=== PATIENT | male | born 1995 | race Two or more races ===

== ENCOUNTER 2023-05-09 12:20 | Inpatient (IN) | payer MEDICAID ==
[~2023-05-09] VITALS: Ht 162.6 cm; Wt 73.5 kg
[2023-05-09] VITALS (7 sets, daily range): BP systolic 120–146; BP diastolic 67–89; TEMP 98.7–99.3; O2SAT 98–100
--- NOTE | 2023-05-09 12:27 | NUR ---
BIBRA 60 FR HIS APT UNIT ALTERED, MAKING NOISES AND NOT COMMUNICATING WITH EMS AND OTHER MEDICAL STAFF. TACHYCARDIA NOTED AT 150 . MD NOTIFIED AND PUT ORDERS.
--- NOTE | 2023-05-09 12:35 | NUR ---
ESTABLISHED IV LINE LEFT FOREARM 18 G .
--- NOTE | 2023-05-09 12:40 | NUR ---
BLOOD SAMPLE OBTAINED SENT TO LAB .
[2023-05-09] MEDS ORDERED: IV NS 0.9% 1,000 ML BAG IV ONE ×2 (13:00→14:00)
--- NOTE | 2023-05-09 13:05 | NUR ---
ACCUCHECK 162
[2023-05-09] MEDS ORDERED: LORAZEPAM INJ 2 MG/ML VIAL ONE (13:08)
[2023-05-09 13:17] LABS: BASOPHILS % (AUTO) 0.3 % (0.0-2.0); HEMATOCRIT 47 % (39-51); HEMOGLOBIN 16.2 g/dL (13.5-17.5); LYMPHOCYTES # (AUTO) 3.7 K/uL (0.8-4.8); LYMPHOCYTES % (AUTO) 25.3 % (20.0-44.0); MEAN CORPUSCULAR HGB CONC 34 g/dl (31.0-36.0); MEAN CORPUSCULAR VOLUME 85 fL (80-96); MONOCYTES # (AUTO) 0.9 K/uL (0.1-1.30); NEUTROPHILS % (AUTO) 68.4 % (43.0-81.0); PLATELET COUNT (AUTO) 311 K/uL (150-450); RED BLOOD CELL COUNT(AUTO) 5.54 MIL/uL (4.5-6.0); WHITE BLOOD COUNT (AUTO) 14.6 K/uL (4.3-11.0)
[2023-05-09 13:29] LABS: CALCIUM, SERUM 8.8 mg/dL (8.5-10.1); CARBON DIOXIDE 20 mmol/L (21-32); CHLORIDE 103 mmol/L (98-107); CREATININE 2.7 mg/dL (0.6-1.3); GLUCOSE 177 mg/dL (74-106); SODIUM SERUM 140 mmol/L (136-145); UREA NITROGEN, BLOOD 14 mg/dL (7-18)
[2023-05-09] MEDS ORDERED: LORAZEPAM INJ 2 MG/ML VIAL IV ONE (13:30)
[2023-05-09 13:36] LABS: ALANINE AMINOTRANSFERASE 29 U/L (12-78); ALBUMIN 4.3 g/dL (3.4-5.0); ALCOHOL, BLOOD < 3 mg/dL (0-10); ALKALINE PHOSPHATASE 72 U/L (46-116); ASPARTATE AMINOTRANSFERASE 29 U/L (15-37); BILIRUBIN,DIRECT 0.3 mg/dL (0.0-0.2); BILIRUBIN,TOTAL 1.1 mg/dL (0.2-1.0); TOTAL PROTEIN, SERUM 7.8 g/dL (6.4-8.2)
[2023-05-09 13:40] LABS: THYROID STIMULATING HORMONE 0.456 uIU/mL (0.358-3.74)
--- NOTE | 2023-05-09 15:15 | NUR ---
114-1 Addendum: 05/09/23 at 1516 by ARLEY ADMITTING AWARE
--- NOTE | 2023-05-09 15:23 | NUR ---
REPORT GIVEN TO NURSE HANNA FOR JOSEMANUEL
--- NOTE | 2023-05-09 15:48 | NUR ---
DR CLAROS AT BED SIDE FOR EVAL THEN GIVE VERBAL ORDER FOR UA AND UDS.
--- NOTE | 2023-05-09 15:50 | NUR ---
PATIENT CANNOT PROVIDE URINE SAMPLE OF THIS MOMENT
--- NOTE | 2023-05-09 16:00 | NUR ---
RN OPENING NOTE RECEIVED PATIENT FROM ER VIA GURNEY. PATIENT ALERT AND ORIENTED X1-2, WITH HEART RATE AT 140, DOCTOR HYACINTH AT BEDSIDE AND AWARE OF HR. PER DOCTOR, PATIENT NEEDS IMMEDIATE TRANSFER TO ICU. PATIENT WAS ASSESSED AND SKIN NOTED INTACT, PATIENT AMBULATORY WITH ASSIST. IV ACCESS ON LFA PATENT AND FLUSHING WELL. ICU WAS CALLED TO HAVE PATIENT ADMITTED.
--- NOTE | 2023-05-09 16:06 | NUR ---
PATIENT ADMITTED TO [facility], STABLE AT TIME OF TRANSFER, ALL CARE ENDORSED TO LYUDMILA DAVIS
[2023-05-09] MEDS ORDERED: Z GUARD REMEDY 4 OZ OINT TP PRN (16:30)
[2023-05-09] MEDS ORDERED: ACETAMINOPHEN 325 MG TABLET PO PRN (16:30)
[2023-05-09] MEDS ORDERED: MAGNESIUM HYDROXIDE 30 ML UDC PO PRN (16:30)
[2023-05-09] MEDS ORDERED: MAG HYDROX/AL HYDROX/SIMETH 30 ML UDC PO PRN (16:30)
[2023-05-09] MEDS ORDERED: ZOLPIDEM TARTRATE 5 MG TABLET PO PRN (16:30)
[2023-05-09] MEDS ORDERED: ONDANSETRON HCL/PF 4 MG/2 ML VIAL IVP PRN (16:30)
--- NOTE | 2023-05-09 16:57 | NUR ---
JAZMYN HICKS GOT A CALL FROM [facility] STATING THAT THE PATIENT`S CT WILL NOT BE READ DUE TO CHANGE IN PATIENT`S NAME IN THE SYSTEM AND THAT A NEW ORDER OF CT NEEDS TO BE PLACED BY DR CLAROS. UNIT CHARGE NURSE SOON MADE AWARE AND CHARGE NURSE SOON VERBALIZED THAT SHE WILL FOLLOW UP WITH DR CLAROS AND ENTER THE ORDER.
[2023-05-09] MEDS ORDERED: VANCOMYCIN 1.5 GM in IV D5W 500ml IV ONE (17:00)
--- NOTE | 2023-05-09 17:30 | NUR ---
RECEIVED REPORT FROM [facility] NURSE. IV STARTED ON RIGHT FOREARM 20 GAUGE. PLACED ON BEDSIDE MONITOR, WILL CONTINUE TO MONITOR
[2023-05-09] MEDS: IV D5/0.45 NACL 1,000 ML IV PRN (17:53)
[2023-05-09] MEDS ORDERED: KETAMINE HCL IN 0.9 % NACL 50 MG/5 ML SYRINGE IV ONE (18:00)
[2023-05-09] MEDS ORDERED: POTASSIUM CHLORIDE 20 MEQ TAB.PRT.SR PO SCH ×3 (18:00→22:00)
[2023-05-09] MEDS: CEFTRIAXONE 2 G in IV D5W 100 ML IV SCH (18:10)
--- NOTE | 2023-05-09 19:00 | NUR ---
RN NOTE PATIENT TRANSFERRED TO ICU, ALERT, ORIENTED X2. ABLE TO COMMUNICATE NEEDS. REPORT GIVEN TO MANJULA FOR JOSEMANUEL.
--- NOTE | 2023-05-09 19:00 | NUR ---
CARE ENDORSED TO NIGHTSHIFT LYUDMILA ESCOBEDO FOR CONTINUATION OF CARE.
--- NOTE | 2023-05-09 19:15 | NUR ---
RN OPENING NOTES RECEIVED PATIENT ON BED, AWAKE A/O X 2-3, ON NASAL CANULA @ 5 LPM, SATING AT 98%. RESPIRATORY EVEN AND UNLABORED, NO SOB NOTED. AFEBRILE. NO S/S OF DISTRESS NOTED. NOTED WITH RFA # 20 AND LFA #18 PERIPHERAL LINE, PATENT INTACT, FLUSHED WITH NS, NO S/S OF INFILTRATION NOTED. RUNNING WITH D5 1/2 NS @ 125ML/HR. S/P LUMBAR PUNCTURE, NO BLEEDING AT SITE NOTED, PATIENT PLACED FLAT ON BED, ENCOURAGE TO INCREASED FLUID INTAKE. ALL SAFETY PRECAUTION PROVIDED. BED IN LOWEST POSITION LOCKED. CALL LIGHT WITH IN REACH.
--- NOTE | 2023-05-09 19:15 | NUR ---
VANCOMYCIN NOT ADMINISTERED. MED NOT FOUND IN [facility], WHERE PATIENT WAS ORIGINALLY ADMITTED. FOLLOWED UP WITH ER TO SEE IF MED WENT TO ER FIRST. MED NOT FOUND IN ER. UNABLE TO GET A HOLD OF PHARMACY.
--- NOTE | 2023-05-09 20:00 | NUR ---
RN NOTES URINE COLLECTED AND SENT TO LAB.
[2023-05-09 20:12] LABS: CSF GLUCOSE 102 mg/dL (40-70); CSF PROTEIN 37.15 mg/dL (15-45)
[2023-05-09] MEDS: ACYCLOVIR IV 1 GM in IV D5W 250 ML IV SCH (21:02)
[2023-05-09 21:30] LABS: BILIRUBIN,URINE NEGATIVE (NEGATIVE); COLOR,URINE YELLOW (YELLOW); LEUKOCYTE ESTERASE ,URINE NEGATIVE (NEGATIVE); NITRITE, URINE NEGATIVE (NEGATIVE); PH,URINE 6.5 (5.0-8.0); PROTEIN,URINE 2+ mg/dl (NEGATIVE); UGLUCOSE TRACE mg/dL (NEGATIVE)
[2023-05-09 21:33] LABS: BACTERIA,URINE None seen /HPF (None Seen); RBC,URINE 21-50 /HPF (0-2); WBC,URINE 0-2 /HPF (0-3)
[2023-05-09 21:34] LABS: MUCUS,URINE Few /LPF (None Seen); URINE AMORPHOUS URATE Moderate /HPF (None Seen)
[2023-05-09] MEDS: POTASSIUM CHLORIDE 20 MEQ TAB.PRT.SR PO SCH (21:54)
[2023-05-10] VITALS (17 sets, daily range): BP systolic 117–140; BP diastolic 58–107; TEMP 97.5–99.2; O2SAT 94–99
[2023-05-10] MEDS: IV D5/0.45 NACL 1,000 ML IV PRN ×2 (03:21→10:36)
[2023-05-10 04:43] LABS: BASOPHILS % (AUTO) 0.5 % (0.0-2.0); EOSINOPHILS % (AUTO) 0.1 % (0.0-6.0); HEMATOCRIT 41 % (39-51); LYMPHOCYTES # (AUTO) 3.2 K/uL (0.8-4.8); LYMPHOCYTES % (AUTO) 36.3 % (20.0-44.0); MEAN CORPUSCULAR HGB CONC 34 g/dl (31.0-36.0); MEAN CORPUSCULAR VOLUME 86 fL (80-96); MONOCYTES # (AUTO) 0.5 K/uL (0.1-1.30); MONOCYTES % (AUTO) 6.1 % (2.0-12.0); PLATELET COUNT (AUTO) 212 K/uL (150-450); RED BLOOD CELL COUNT(AUTO) 4.81 MIL/uL (4.5-6.0); WHITE BLOOD COUNT (AUTO) 8.8 K/uL (4.3-11.0)
[2023-05-10] MEDS: ACYCLOVIR IV 1 GM in IV D5W 250 ML IV SCH ×3 (04:44→21:03)
[2023-05-10 05:12] LABS: CALCIUM, SERUM 8.1 mg/dL (8.5-10.1); CREATININE 1.9 mg/dL (0.6-1.3); MAGNESIUM 2.5 mg/dL (1.8-2.4); PHOSPHORUS 2.2 mg/dL (2.5-4.9); POTASSIUM 3.8 mmol/L (3.5-5.1)
[2023-05-10 05:14] LABS: THYROID STIMULATING HORMONE 1.074 uIU/mL (0.358-3.74)
--- NOTE | 2023-05-10 07:00 | NUR ---
RECIEVED PATIENT REPORT FROM NIGHTSIDFT LYUDMILA ESCOBEDO. PATIENT ON ROOM AIR, OXYGEN SATURATION AT 97%. SINUS TACHYCARDIA ON BEDSIDE MONITOR AT THIS TIME. ALERT AND ORIENTED TIMES 2-3. SKIN INTACT. PATIENT USES URINAL. ON LIQUID DIET. IV ACCESS' MAINTAINED ON RIGHT AND LEFT FOREARMS, 20 AND 18 GAUGE, RESPECTIVELY. SAFETY MEASURES IMPLEMENTED WILL CONTINUE PLAN OF CARE AND ANTICIPATE NEEDS.
--- NOTE | 2023-05-10 08:00 | NUR ---
ASKED PATIENT IF HE TAKES ANY MEDICATION AT HOME, GIVEN HIS PSYCHIATRIC HISTORY. PER PATIENT HE DOES NOT TAKE ANY HOME MEDICATIONS.
[2023-05-10] MEDS: POTASSIUM CHLORIDE 20 MEQ TAB.PRT.SR PO SCH (08:01)
--- NOTE | 2023-05-10 09:53 | NUR ---
consult: Patient is a 28 year old male that was brought brought to [facility] ER due to ETOH abuse. Patient appeared to be alert and oriented X4 (self, place, time, situation). Patient was cooperative with the repairer typewriter while conducting the assessment. He said he was brought to the hospital due to drinking heavily. He consumed two bottles of tequila. He resides [address] [place] [address]. Patient stated that he does not have any support at this time. DC Plan: Pt cortez want to return back home to [address] [place] [address] Substance Abuse resources: Substance Abuse resources provided included: [facility] Substance Abuse Self-Helpline ([facility]) ; [facility] [address] [facility] [place] [place] [id number] ; [facility] [address] [facility] [address] ; [facility] [address] [facility] [phone] ; [facility] [address] [facility] [address] ; [facility] [address] [address] [facility] [address] ; [facility] [address] [facility] [phone] ; [facility] Substance Abuse Helpline([facility] ; [facility] ; [facility]; [facility] [place]; [facility] [place]; [facility] [place]; [place] [facility] [place]; [facility], [facility]. [place]; Alcoholics Anonymous [facility]; Rachel ; Marijuana Anonymous [facility]; Narcotics Anonymous [email or web address].na.org;
[2023-05-10] MEDS: CHLORDIAZEPOXIDE HCL 25 MG CAPSULE PO SCH ×2 (11:37→17:11)
[2023-05-10] MEDS ORDERED: Folic acid 1 MG in IV D5W 50 ML IV SCH (12:00)
[2023-05-10] MEDS ORDERED: Thiamine 100 MG in IV D5W 50 ML IV SCH (12:30)
[2023-05-10] MEDS ORDERED: K PHOS NEUTRAL 250 MG TABLET PO ONE (13:30)
--- NOTE | 2023-05-10 14:00 | NUR ---
HAND OFF REPORT GIVEN TO RAHUL COREAS FOR CONTINUATION OF CARE. PATIENT TO BE TRANSFERRED TO [facility].
[2023-05-10] MEDS: VANCOMYCIN 0.75 GM in IV D5W 250 ML IV SCH (15:59)
[2023-05-10] MEDS: CEFTRIAXONE 2 G in IV D5W 100 ML IV SCH (16:35)
[2023-05-10] MEDS ORDERED: VANCOMYCIN 1 GM in IV D5W 250ml IV SCH (17:00)
--- NOTE | 2023-05-10 19:00 | NUR ---
PATIENT REMAINED STABLE, CALM AND COOPERATIVE. AL DUE MEDS GIVEN, ALL SAFETY PRECAUTIONS IMPLEMENTED. ALREADY ENDORSED HE PATIENT TO THE PM NURSE FOR JOSEMANUEL.
--- NOTE | 2023-05-10 19:59 | NUR ---
MOBILITY ARCHITECT MANAGER OPENING NOTES RECEIVED PATIENT IN BED, AWAKE WATCHING TV A/O X 4, ON ROOM AIR. RESPIRATORY EVEN AND UNLABORED, NO SOB NOTED. AFEBRILE. NO S/S OF DISTRESS NOTED. NOTED WITH RFA # 20 AND LFA #18 PERIPHERAL LINE, PATENT INTACT, FLUSHED WITH NS, NO S/S OF INFILTRATION NOTED. RUNNING WITH D5 1/2 NS @ 125ML/HR. ALL SAFETY PRECAUTION PROVIDED. BED IN LOWEST POSITION LOCKED. CALL LIGHT WITH IN REACH.
[2023-05-11] VITALS: BP 136/74; TEMP 98.7; O2SAT 98
[2023-05-11] MEDS: VANCOMYCIN 0.75 GM in IV D5W 250 ML IV SCH (02:01)
[2023-05-11] MEDS: IV D5/0.45 NACL 1,000 ML IV PRN (02:07)
[2023-05-11 04:00] VITALS: BP 143/94; TEMP 98.3; O2SAT 100
[2023-05-11] MEDS: ACYCLOVIR IV 1 GM in IV D5W 250 ML IV SCH (04:40)
[2023-05-11 06:35] LABS: BASOPHILS # (AUTO) 0.1 K/uL (0.0-0.2); EOSINOPHILS % (AUTO) 0.4 % (0.0-6.0); HEMATOCRIT 43 % (39-51); HEMOGLOBIN 14.4 g/dL (13.5-17.5); LYMPHOCYTES % (AUTO) 44.3 % (20.0-44.0); MEAN CORPUSCULAR HGB CONC 33 g/dl (31.0-36.0); MEAN CORPUSCULAR VOLUME 87 fL (80-96); MONOCYTES # (AUTO) 0.4 K/uL (0.1-1.30); MONOCYTES % (AUTO) 5.4 % (2.0-12.0); NEUTROPHILS # (AUTO) 3.3 K/uL (1.8-8.9); NEUTROPHILS % (AUTO) 48.9 % (43.0-81.0); PLATELET COUNT (AUTO) 191 K/uL (150-450); RED BLOOD CELL COUNT(AUTO) 4.99 MIL/uL (4.5-6.0); WHITE BLOOD COUNT (AUTO) 6.7 K/uL (4.3-11.0)
--- NOTE | 2023-05-11 06:54 | NUR ---
ENVIRONMENTAL COORDINATOR CLOSING NOTE PATIENT RESTING IN BED EASILY AROUSABLE. PT IS A/OX4 ON ROOM AIR TOLERATING WELL SATTING AT 100%. RESPIRATORY EVEN AND UNLABORED, NO SOB NOTED. AFEBRILE. NO S/S OF DISTRESS NOTED. BUSINESS DEVELOPMENT CONSULTANT IN PLACE SHOWING SINUS RHYTHM AT 65. IV IS NOTED WITH RFA # 20 AND LFA #18 , PATENT INTACT, RUNNING WITH D5 1/2 NS @ 125ML/HR. NO S/S OF INFILTRATION. ALL SAFETY PRECAUTION PROVIDED. BED IN LOWEST POSITION LOCKED. CALL LIGHT WITH IN REACH. ALL DUE MEDS GIVEN. NO C/O PAIN AT THIS TIME. PT REMAINED STABLE, CALM AND COOPERATIVE. WILL ENDORSE CARE TO THE AM SHIFT NURSE.
[2023-05-11 07:08] LABS: CALCIUM, SERUM 8.8 mg/dL (8.5-10.1); CREATININE 1.3 mg/dL (0.6-1.3); MAGNESIUM 2.3 mg/dL (1.8-2.4); PHOSPHORUS 2.9 mg/dL (2.5-4.9); POTASSIUM 3.5 mmol/L (3.5-5.1)
--- NOTE | 2023-05-11 07:30 | NUR ---
SUPERVISOR OPERATIONS AM NOTES RECEIVED PATIENT IN BED, AWAKE WATCHING TV A/O X 4, ON ROOM AIR. O2 SAT 96%. RESPIRATORY UNLABORED, NO SOB NOTED. AFEBRILE. NO S/S OF DISTRESS NOTED. NOTED WITH RFA # 20 AND LFA #18 PERIPHERAL LINE, PATENT INTACT, FLUSHED WITH NS, NO S/S OF INFILTRATION NOTED. RUNNING WITH D5 1/2 NS @ 125ML/HR. ALL SAFETY PRECAUTION PROVIDED. BED IN LOWEST POSITION LOCKED. CALL LIGHT WITH IN REACH. WILL CONT TO MONITOR.
[2023-05-11 08:00] VITALS: BP 147/88; TEMP 98; O2SAT 100
[2023-05-11] MEDS: CHLORDIAZEPOXIDE HCL 25 MG CAPSULE PO SCH (09:08)
[2023-05-11] MEDS: POTASSIUM CHLORIDE 20 MEQ TAB.PRT.SR PO SCH (09:08)
--- NOTE | 2023-05-11 09:30 | NUR ---
RN NOTES DUE MEDS GIVEN
[2023-05-11] MEDS ORDERED: Folic Acid PO (11:17)
[2023-05-11] MEDS ORDERED: Thiamine HCL PO (11:17)
[2023-05-11 12:00] VITALS: BP 140/90; TEMP 97.9; O2SAT 100
[2023-05-11] MEDS ORDERED: FOLIC ACID 1 MG TABLET PO SCH (12:00)
--- NOTE | 2023-05-11 12:30 | NUR ---
RN NOTES PATIENT DISCHARGED TO HOME TODAY PER MD IN STABLE CONDITION. PROVIDED DC INSTRUCTIONS, HEALTH TEACHINGS AND MED RECON LIST. PATIENT TO FOLLOW UP WITH PCP IN 1 WEEK AND WILL MAKE OWN APPOINTMENT. IV ACCESS ON LEFT FA AND RT FA REMOVED. BOTH CATHETER TIP COMPLETE, APPLIED PRESSURE AND DRESSING. NO BLEEDING. ALL BELONGINGS CHECKED AND RETURNED. NO SKIN ISSUES. ALL PAPERWORKS SIGNED. PATIENT TO BE PICKED UP BY FAMILY AND WILL GO HOME VIA PRIVATE CAR.
[2023-05-11] MEDS ORDERED: THIAMINE HCL 100 MG TABLET PO SCH (13:00)
[2023-05-11] MEDS ORDERED: IV D5/0.45 NACL 1,000 ML IV PRN (14:03)
== END 2023-05-11 14:28 | disposition home or self-care (01) | DRG 469 ==
LOC: ER 12:22 → TELE1 15:27 → ICU 17:06 → TELE1 05-10 14:46
PROVIDERS: ADMIT Student in an Organized Health Care Education/Training Program; ATTEND Internal Medicine
PROC: 009U3ZX Drainage of Spinal Canal, Percutaneous Approach, Diagnostic (ICD-10-PCS; principal; 2023-05-09)
PROC: B01BYZZ Fluoroscopy of Spinal Cord using Other Contrast (ICD-10-PCS; 2023-05-09)
DX: N17.0 Acute kidney failure with tubular necrosis (principal); G92.9 Unspecified toxic encephalopathy; E83.39 Other disorders of phosphorus metabolism; E83.41 Hypermagnesemia; F10.139 Alcohol abuse with withdrawal, unspecified; Y90.0 Blood alcohol level of less than 20 mg/100 ml; D72.829 Elevated white blood cell count, unspecified; E87.6 Hypokalemia; E80.6 Other disorders of bilirubin metabolism; R00.0 Tachycardia, unspecified; Z71.41 Alcohol abuse counseling and surveillance of alcoholic
CPT/HCPCS: 36415; 70450-TC; 76770-TC; 80048-TC; 80076-TC; 81001; 82533; 82607-TC; 83735-TC; 84100-TC; 84425; 84443-TC; 85025-TC; 87040-TC; 89051-TC; 97110-TC; 97112-TC; 97116-TC; A4223; G0378; G0480; J0133; J0696; J2060; J3370; J3411; J3490; J7030; J7060